=== PATIENT | male | born 1990 | race Caucasian/White ===

== ENCOUNTER 2018-04-07 20:27 | Emergency (ER) | payer BC ==
--- NOTE | 2018-04-07 21:11 | ED ---
GI/ HPI - HPI Summary HPI Summary: This patient is a 28 year old M presenting to [facility] with a chief complaint of sharp quick intermittent stabbing pain in his right testicular area that radiates up to his RLQ/right flank since 1500. Pt states he palpated a pencil eraser sized lump in his scrotum that is not associated with the testicle. Pt denies swelling, N/V, and abd pain. He endorses right 5th finger numbness this AM upon waking. FHx kidney stones. - History of Current Complaint Chief Complaint: EDUrogenitalProblems Time Seen by Provider: 04/07/18 20:40 Stated Complaint: RT TESTICAL PAIN Hx Obtained From: Patient Onset/Duration: Started Hours Ago, Atraumatic Timing: Intermittent, Lasting Seconds Severity: Moderate Current Severity: None Pain Intensity: 0 Location of Pain: Radiates to: - RLQ, flank Additional Locations for Males: Scrotum, Testicles Pain Characteristics: Sharp, Other: - stabbing Pain Radiates to: Flank, RLQ Associated Signs and Symptoms: Positive: Flank Pain, Other: - POSITIVE: NEGATIVE : genital swelling. Negative: Nausea, Vomiting, Fever, Abdominal Pain - Allergy/Home Medications Allergies/Adverse Reactions: Allergies Allergy/AdvReac Type Severity Reaction Status Date / Time amoxicillin Allergy Unknown Verified 04/07/18 20:31 Reaction Details [facility] Allergy Unknown Verified 04/07/18 20:31 Reaction Details Home Medications: Home Medications Methylphenidate TAB* [Ritalin TAB*] 10 mg PO 0700,1400 04/07/18 [History Confirmed 04/07/18] Pantoprazole TAB (NF) [Protonix TAB (NF)] 20 mg PO DAILY 04/07/18 [History Confirmed 04/07/18] Sertraline* [Zoloft*] 50 mg PO DAILY 04/07/18 [History Confirmed 04/07/18] PMH/Surg Hx/FS Hx/Imm Hx Endocrine/Hematology History: Denies: Hx Diabetes Cardiovascular History: Denies: Hx Congestive Heart Failure, Hx Hypertension, Hx Pacemaker/ICD, Other Cardiovascular Problems/Disorders Respiratory History: Denies: Hx Asthma, Hx Chronic Obstructive Pulmonary Disease (COPD), Other Respiratory Problems/Disorders GI History: Reports: Hx Gastroesophageal Reflux Disease - ON MEDS Denies: Other GI Disorders History: Denies: Hx Renal Disease, Other Problems/Disorders Musculoskeletal History: Denies: Other Musculoskeletal History Sensory History: Reports: Hx Contacts or Glasses - GLASSES Denies: Hx Hearing Aid Opthamlomology History: Reports: Hx Contacts or Glasses - GLASSES Neurological History: Denies: Other Neuro Impairments/Disorders Psychiatric History: Denies: Hx Panic Disorder - Surgical History Surgery Procedure, Year, and Place: WISDOM TOOTH Hx Anesthesia Reactions: No - Immunization History Immunizations Up to Date: Yes Infectious Disease History: No Infectious Disease History: Denies: Traveled Outside the [place] in Last 30 Days - Family History Family History: No FHx anesthesia reaction, no FHx malignant hyperthermia - Social History Alcohol Use: None Substance Use Type: Reports: None Smoking Status (MU): Never Smoked Tobacco Review of Systems Negative: Fever Negative: Abdominal Pain, Vomiting, Nausea Positive: pain - right testicle/scrotum, radiates to flank and RLQ, other - palpated "pencil eraser" sized mass in right scrotum, NEGATIVE genital swelling All Other Systems Reviewed And Are Negative: Yes Physical Exam - Summary Physical Exam Summary: Appearance: Well-appearing, Well-nourished, lying in bed comfortably Skin: Warm, dry, no obvious rash Eyes: sclera anicteric, no conjunctival pallor ENT: mucous membranes moist, pharynx appears normal Neck: Supple, nontender Respiratory: Clear to auscultation, no signs of respiratory distress Cardiovascular: Normal S1, S2. No murmurs. Normal distal pulses in tibial and radial bilaterally. Abdomen: Soft, nontender, normal active bowel sounds present Musculoskeletal: Normal, Strength/ROM Intact Neurological: A&Ox3, awake and alert, mentation is normal, speech is fluent and appropriate Psychiatric: affect is normal, does not appear anxious or depressed GI: no inguinal hernias, no masses, external genitalia appear normal, both testicles are descended and non-swollen. Small freely mobile pea-sized mass in right posterior scrotum that does not appear to be associated with testicle itself and is not particularly tender. Triage Information Reviewed: Yes Vital Signs On Initial Exam: Initial Vitals Temp Pulse Resp BP Pulse Ox 98.7 F 99 18 147/100 97 04/07/18 20:29 04/07/18 20:29 04/07/18 20:29 04/07/18 20:29 04/07/18 20:29 Vital Signs Reviewed: Yes Diagnostics - Vital Signs Vital Signs Temp Pulse Resp BP Pulse Ox 04/07/18 20:29 98.7 F 99 18 147/100 97 - Laboratory Lab Statement: Any lab studies that have been ordered have been reviewed, and results considered in the medical decision making process. - Ultrasound No standard instances Ultrasound Interpretation: Positive (See Comments) Ultrasound Interpretation Completed By: Radiologist - US right testicle: Slightly increased vascular flow to the right testicle. Etiology could be infectious/inflammatory. Small right epididymal cyst. Small right hydrocele. Dr. Trejo has reviewed this report. GIGU Course/Dx - Course Course Of Treatment: A 28-year-old M presents to the ED with a CC of intermittant, shooting, right testicular/scrotal pain since 1500. (+) radiation to RLQ/right flank, pain only lasts a few seconds, "pencil eraser" sized lump not associated with testicle. (-) swelling, N/V, and abd pain. He palpated a small mass not associated with his testicle, was at rest. A testicular US revealed slightly increased vascular flow to the right testicle. Etiology could be infectious/inflammatory. Small right epididymal cyst. Small right hydrocele. Pt showed no lab abnormalities. - Diagnoses Differential Diagnoses - Male: Epididymitis, Pyelonephritis, Testicular Torsion , Urinary Tract Infection Provider Diagnoses: Testicular pain, right, Hydrocele Discharge - Sign-Out/Discharge Documenting (check all that apply): Patient Departure - discharge - Discharge Plan Condition: Stable Disposition: HOME Patient Education Materials: Hydrocele (ED), Testicle Pain (ED) Referrals: Sage Benito MD [Medical Doctor] - Additional Instructions: The US and UA were ok. You do have a small hydrocele and a cyst in the scrotum that should be evaluated by the urologist at your convenience, but frequently these do not require any specific intervention. In particular there was no sign of testicular torsion, an emergent condition of the testicle that has to be treated immediately. - Billing Disposition and Condition Condition: STABLE Disposition: Home - Attestation Statements Document Initiated by Scribe: Yes Documenting Scribe: Quentin Jurado Provider For Whom Scribe is Documenting (Include Credential): Dr. Martell Trejo MD Scribe Attestation: IQuentin, scribed for Dr. Martell Trejo MD on 04/08/18 at 0615. Scribe Documentation Reviewed: Yes Provider Attestation: The documentation as recorded by the scribeQuentin accurately reflects the service I personally performed and the decisions made by me, Dr. Martell Trejo MD
--- NOTE | 2018-04-07 22:12 | RAD ---
EXAM: US Scrotum CLINICAL HISTORY: 28 years old, male; Pain; Scrotum pain; Additional info: Intermittent pain, small scrotal mass right side TECHNIQUE: Real-time ultrasound of the scrotum with color Doppler and image documentation. COMPARISON: No relevant prior studies available. FINDINGS: Right testicle: The right testicle measures 5.5 x 2.5 x 3.4 cm. Slightly increased vascular flow to the right testicle. No torsion. Left testicle: The left testicle measures 4.8 x 2.4 x 3.5 cm. Normal flow to the left testicle. No torsion. Epididymides: The right epididymis measures 1.4 x 1.5 cm. The left epididymis measures 1.2 x 1.4 cm. A right epididymal cyst measures 1.1 x 1.1 x 1.5 cm. Scrotum: Small right hydrocele. IMPRESSION: Slightly increased vascular flow to the right testicle. Etiology could be infectious/inflammatory. Small right epididymal cyst. Small right hydrocele.
[2018-04-07 22:49] LABS: Urine Appearance Clear; Urine Blood Negative (Negative); Urine Color Yellow; Urine Ketones Negative (Negative); Urine Protein Negative (Negative); Urine Urobilinogen Negative (Negative)
[2018-04-08 00:15] VITALS: BP 128/79
== END 2018-04-08 00:14 | disposition home or self-care (01) ==
LOC: ED 20:27
DX: N50.811 Right testicular pain (principal); N43.3 Hydrocele, unspecified; R10.84 Generalized abdominal pain
CPT/HCPCS: 76870; 81003; 99282